=== PATIENT | female | born 1960 | race Caucasian/White ===

== ENCOUNTER 2021-10-13 08:15 | Outpatient (CLI) | payer BC | END 2021-10-13 08:16 | disposition home or self-care (01) | LOC: CSHMAMMO 08:15 | PROVIDERS: ATTEND Family Medicine | DX: Z12.31 Encounter for screening mammogram for malignant neoplasm of breast (principal) | CPT/HCPCS: 77063; 77067 ==

== ENCOUNTER 2025-02-25 09:56 | Outpatient (CLI) | payer MEDICARE ==
[2025-02-25] MEDS ORDERED: Iopamidol 300 61% 100 ML VIAL FS ONE (10:23)
[2025-02-25 11:35] LABS: Estimated GFR - POC 38.0
== END 2025-02-25 09:57 | disposition home or self-care (01) ==
LOC: CSHCT 09:56
PROVIDERS: ATTEND Family Medicine
DX: R10.31 Right lower quadrant pain (principal); R19.03 Right lower quadrant abdominal swelling, mass and lump; Z85.528 Personal history of other malignant neoplasm of kidney; D17.5 Benign lipomatous neoplasm of intra-abdominal organs; K43.9 Ventral hernia without obstruction or gangrene; S32.591D Other specified fracture of right pubis, subsequent encounter for fracture with routine healing; K44.9 Diaphragmatic hernia without obstruction or gangrene; Z90.5 Acquired absence of kidney
CPT/HCPCS: 74177; 82565

== ENCOUNTER 2025-04-30 13:18 | Outpatient (CLI) | payer MEDICARE | END 2025-04-30 13:19 | disposition home or self-care (01) | LOC: CSHMAMMO 13:18 | PROVIDERS: ATTEND Family Medicine | DX: Z12.31 Encounter for screening mammogram for malignant neoplasm of breast (principal); Z85.528 Personal history of other malignant neoplasm of kidney | CPT/HCPCS: 77063; 77067 ==